=== PATIENT | male | born 1960 | race Caucasian/White ===

== ENCOUNTER 2018-04-05 08:33 | Emergency (ER) | payer MEDICAID ==
[~2018-04-05] VITALS: Ht 190.5 cm; Wt 75.5 kg
[~2018-04-05 08:33] MED LIST: ADV50500 IH; ALBU8HFA PO; AZIT-63 PO; CLIN150C8 PO; CLIN300C85 PO; HYDR-4353 PO; HYDR-4383 PO; IBUP-1984 PO; IPRA3AMP9 NEB; NEBU-161; NICO-631 TD; PANT-47 PO; PRED20TA PO
[2018-04-05 08:34] VITALS: BP 126/74
== END 2018-04-05 08:59 | disposition home or self-care (01) ==
LOC: ER 08:33
DX: S63.502A Unspecified sprain of left wrist, initial encounter (principal); Z88.0 Allergy status to penicillin; Z79.2 Long term (current) use of antibiotics; Z79.899 Other long term (current) drug therapy; W22.8XXA Striking against or struck by other objects, initial encounter; Y93.89 Activity, other specified; Y92.89 Other specified places as the place of occurrence of the external cause; Y99.8 Other external cause status
CPT/HCPCS: 29125; 73130; 99283

== ENCOUNTER 2018-08-28 09:59 | Emergency (ER) | payer MEDICAID ==
[~2018-08-28] VITALS: Ht 190.5 cm; Wt 76.0 kg
[~2018-08-28 09:59] MED LIST changes: +CLIN-96 PO; -CLIN300C85 PO
[2018-08-28] MEDS ORDERED: AZI25OT PO (11:19)
[2018-08-28 11:29] VITALS: BP 117/78
== END 2018-08-28 11:32 | disposition home or self-care (01) ==
LOC: ER 10:00
DX: J18.9 Pneumonia, unspecified organism (principal); J44.9 Chronic obstructive pulmonary disease, unspecified; F17.200 Nicotine dependence, unspecified, uncomplicated; Z79.2 Long term (current) use of antibiotics; Z88.0 Allergy status to penicillin; Z79.899 Other long term (current) drug therapy; Z98.890 Other specified postprocedural states
CPT/HCPCS: 71045; 99283

== ENCOUNTER 2020-07-17 09:09 | Emergency (ER) | payer MEDICAID ==
[~2020-07-17] VITALS: Ht 190.5 cm; Wt 73.0 kg
[~2020-07-17 09:09] MED LIST changes: -CLIN-96 PO; +CLIN-97 PO
[2020-07-17 09:52] LABS: BASOPHILS # (AUTO) 0.1 X10'3 (0-0.2); EOSINOPHILS % (AUTO) 0.6 % (0-6); HEMATOCRIT 38.5 % (42.0-52.0); HEMOGLOBIN 13.3 g/dl (14.0-17.9); LYMPHOCYTES # (AUTO) 0.9 X10'3 (1.1-4.8); LYMPHOCYTES % (AUTO) 13.2 % (21-51); MEAN CORPUSCULAR HEMOGLOBIN 34.9 PG (27.0-31.0); MEAN CORPUSCULAR HGB CONC 34.6 g/dL (33.0-36.5); MEAN CORPUSCULAR VOLUME 100.9 FL (78-98); MEAN PLATELET VOLUME 7.8 FL (7.4-10.4); MONOCYTES # (AUTO) 0.7 X10'3 (0-0.9); NEUTROPHILS # (AUTO) 5.1 X10'3 (1.8-7.7); NEUTROPHILS % (AUTO) 75.2 % (42-75); PLATELET COUNT 231 X10'3 (140-440); RED BLOOD COUNT 3.81 X10'6 (4.70-6.10); WHITE BLOOD COUNT 6.8 X10'3 (4.5-11.0)
[2020-07-17 10:06] LABS: ALANINE AMINOTRANSFERASE 31 U/L (12-78); ALBUMIN 3.1 G/DL (3.4-5.0); ALBUMIN/GLOBULIN RATIO 0.8 (1.1-1.5); ALKALINE PHOSPHATASE 63 IU/L (46-116); ANION GAP 7 (8-16); ASPARTATE AMINO TRANSFERASE 34 U/L (10-37); BILIRUBIN,TOTAL 0.6 MG/DL (0.1-1.0); BLOOD UREA NITROGEN 13 MG/DL (7-18); BUN/CREATININE RATIO 13.3 (5.4-32.0); CALCIUM 8.4 MG/DL (8.5-10.1); CHLORIDE 96 MMOL/L (99-107); CREATININE 0.98 MG/DL (0.60-1.10); GLUCOSE 118 MG/DL (70-104); POTASSIUM 4.7 MMOL/L (3.5-5.1); SODIUM 128 MMOL/L (135-145); TOTAL CARBON DIOXIDE 25.1 MMOL/L (24-32); TOTAL PROTEIN 7.1 G/DL (6.4-8.2); eGFR 78 ML/MIN
[2020-07-17] MEDS ORDERED: DICL100G15 TOP (12:34)
[2020-07-17] MEDS ORDERED: BENZ-16 PO (12:34)
[2020-07-17 12:37] VITALS: BP 132/90
== END 2020-07-17 12:38 | disposition home or self-care (01) ==
LOC: ER 09:10
DX: J44.9 Chronic obstructive pulmonary disease, unspecified (principal); R05 Cough; M94.0 Chondrocostal junction syndrome [Tietze]; Z72.89 Other problems related to lifestyle; Z88.0 Allergy status to penicillin; Z79.2 Long term (current) use of antibiotics; Z79.899 Other long term (current) drug therapy
CPT/HCPCS: 36415; 71045; 80053; 83880; 84484; 85025; 93005; 99285

== ENCOUNTER 2020-07-28 07:41 | Emergency (ER) | payer MEDICAID ==
[~2020-07-28] VITALS: Ht 190.5 cm; Wt 81.8 kg
[~2020-07-28 07:41] MED LIST changes: +BENZ-16 PO; +DICL100G15 TOP
[2020-07-28 07:44] VITALS: BP 119/89
[2020-07-28] MEDS ORDERED: ibuprofen 200mg tablet PO ONE (08:10)
[2020-07-28] MEDS ORDERED: IBUP-1985 PO (08:10)
--- NOTE | 2020-07-28 08:10 | NUR ---
Patient placed in large [id number]
== END 2020-07-28 08:41 | disposition home or self-care (01) ==
LOC: ER 07:42
DX: S42.032A Displaced fracture of lateral end of left clavicle, initial encounter for closed fracture (principal); J44.9 Chronic obstructive pulmonary disease, unspecified; Z72.89 Other problems related to lifestyle; Z88.0 Allergy status to penicillin; Z79.899 Other long term (current) drug therapy; W17.89XA Other fall from one level to another, initial encounter; Y93.89 Activity, other specified; Y92.89 Other specified places as the place of occurrence of the external cause; Y99.8 Other external cause status
CPT/HCPCS: 73030; 99284

== ENCOUNTER 2020-09-03 10:02 | Emergency (ER) | payer MEDICAID ==
[~2020-09-03] VITALS: Ht 190.5 cm; Wt 74.8 kg
[~2020-09-03 10:02] MED LIST changes: -BENZ-16 PO; +IBUP-1985 PO
[2020-09-03 11:23] VITALS: BP 156/94
== END 2020-09-03 11:37 | disposition home or self-care (01) ==
LOC: ER 10:03
DX: G62.9 Polyneuropathy, unspecified (principal); J44.9 Chronic obstructive pulmonary disease, unspecified; Z72.89 Other problems related to lifestyle; Z98.890 Other specified postprocedural states; Z88.0 Allergy status to penicillin; Z79.899 Other long term (current) drug therapy
CPT/HCPCS: 82948; 99282

== ENCOUNTER 2021-02-09 09:23 | Emergency (ER) | payer MEDICAID ==
[~2021-02-09] VITALS: Ht 190.5 cm; Wt 77.3 kg
[2021-02-09 09:36] VITALS: BP 119/76
[2021-02-09] MEDS ORDERED: PERM60CR19 TOP (09:41)
== END 2021-02-09 09:46 | disposition home or self-care (01) ==
LOC: ER 09:23
DX: B86 Scabies (principal); J44.9 Chronic obstructive pulmonary disease, unspecified; Z88.0 Allergy status to penicillin; Z88.1 Allergy status to other antibiotic agents; Z88.8 Allergy status to other drugs, medicaments and biological substances
CPT/HCPCS: 99282

== ENCOUNTER 2021-04-15 09:43 | Emergency (ER) | payer MEDICAID ==
[~2021-04-15] VITALS: Ht 190.5 cm; Wt 75.0 kg
[~2021-04-15 09:43] MED LIST changes: -AZIT-63 PO; +AZIT-83 PO
[2021-04-15 09:57] VITALS: BP 152/92
[2021-04-15] MEDS ORDERED: SULF1TAB45 PO (12:42)
== END 2021-04-15 12:55 | disposition home or self-care (01) ==
LOC: ER 09:44
DX: H00.034 Abscess of left upper eyelid (principal); J44.9 Chronic obstructive pulmonary disease, unspecified; Z87.81 Personal history of (healed) traumatic fracture; Z98.890 Other specified postprocedural states; Z72.89 Other problems related to lifestyle; Z88.0 Allergy status to penicillin; Z79.2 Long term (current) use of antibiotics; Z79.899 Other long term (current) drug therapy
CPT/HCPCS: 10060; 99283

== ENCOUNTER 2021-07-31 12:59 | Emergency (ER) | payer MEDICAID ==
[~2021-07-31] VITALS: Ht 190.5 cm; Wt 77.3 kg
[2021-07-31 13:04] VITALS: BP 100/73
[2021-07-31] MEDS ORDERED: SULF1TAB49 PO (14:33)
== END 2021-07-31 14:48 | disposition home or self-care (01) ==
LOC: ER 13:00
DX: L02.415 Cutaneous abscess of right lower limb (principal); J44.9 Chronic obstructive pulmonary disease, unspecified; Z87.81 Personal history of (healed) traumatic fracture; Z88.0 Allergy status to penicillin; Z79.899 Other long term (current) drug therapy
CPT/HCPCS: 99283

== ENCOUNTER 2023-05-11 13:11 | Emergency (ER) | payer MEDICAID ==
[~2023-05-11] VITALS: Ht 190.5 cm; Wt 77.0 kg
[~2023-05-11 13:11] MED LIST changes: +AZIT-164 PO; -AZIT-83 PO; +CLIN-214 PO; -CLIN150C8 PO
[2023-05-11 13:33] VITALS: BP 145/81; PULSE 88; RESP 16; TEMP 98.2; O2SAT 98
[2023-05-11] MEDS ORDERED: MUPI22OI30 TOP (13:35)
== END 2023-05-11 13:57 | disposition home or self-care (01) ==
LOC: ER 13:11
DX: L01.00 Impetigo, unspecified (principal); J44.9 Chronic obstructive pulmonary disease, unspecified; Z87.81 Personal history of (healed) traumatic fracture; Z72.89 Other problems related to lifestyle; Z79.899 Other long term (current) drug therapy; Z79.2 Long term (current) use of antibiotics; Z88.0 Allergy status to penicillin
CPT/HCPCS: 99283

== ENCOUNTER 2023-05-25 12:13 | Emergency (ER) | payer MEDICAID ==
[~2023-05-25] VITALS: Ht 190.5 cm; Wt 77.6 kg
[2023-05-25 12:50] VITALS: BP 141/79; PULSE 96; RESP 18; TEMP 97; O2SAT 98
== END 2023-05-25 16:06 | disposition left against medical advice (07) ==
LOC: ER 12:14
DX: K13.0 Diseases of lips (principal); Z53.21 Procedure and treatment not carried out due to patient leaving prior to being seen by health care provider
CPT/HCPCS: 99281

== ENCOUNTER 2023-11-07 10:07 | Emergency (ER) | payer MEDICAID ==
[~2023-11-07] VITALS: Ht 190.5 cm; Wt 76.1 kg
[2023-11-07 10:08] VITALS: BP 165/92; PULSE 89; O2SAT 98
[2023-11-07] MEDS ORDERED: TERB30CR8 TOP (11:12)
[2023-11-07 11:18] VITALS: RESP 16; TEMP 98.5
== END 2023-11-07 11:19 | disposition home or self-care (01) ==
LOC: ER 10:08
DX: B36.8 Other specified superficial mycoses (principal); F10.90 Alcohol use, unspecified, uncomplicated; J44.9 Chronic obstructive pulmonary disease, unspecified; Z88.0 Allergy status to penicillin; Z79.899 Other long term (current) drug therapy; Z79.51 Long term (current) use of inhaled steroids; Z79.2 Long term (current) use of antibiotics; Z79.52 Long term (current) use of systemic steroids; Z98.890 Other specified postprocedural states
CPT/HCPCS: 99282

== ENCOUNTER 2024-04-10 07:54 | Emergency (ER) | payer MEDICAID ==
[~2024-04-10] VITALS: Ht 182.9 cm; Wt 76.1 kg
[~2024-04-10 07:54] MED LIST changes: +TERB30CR8 TOP
[2024-04-10] MEDS ORDERED: HYDR-3686 PO (08:22)
[2024-04-10] MEDS ORDERED: PRED20TA PO (08:22)
[2024-04-10 08:33] VITALS: BP 145/82; PULSE 99; RESP 16; TEMP 97.6; O2SAT 100
== END 2024-04-10 08:36 | disposition home or self-care (01) ==
LOC: ER 07:54
DX: L23.89 Allergic contact dermatitis due to other agents (principal); L29.89 Other pruritus; J44.9 Chronic obstructive pulmonary disease, unspecified; F10.90 Alcohol use, unspecified, uncomplicated; Z88.0 Allergy status to penicillin; Z79.52 Long term (current) use of systemic steroids; Z79.899 Other long term (current) drug therapy
CPT/HCPCS: 99283

== ENCOUNTER 2024-06-07 08:29 | Emergency (ER) | payer MEDICAID ==
[~2024-06-07] VITALS: Ht 190.5 cm; Wt 81.1 kg
[~2024-06-07 08:29] MED LIST changes: +HYDR-3686 PO
[2024-06-07 08:45] VITALS: BP 179/91; PULSE 89; RESP 16; TEMP 97.9; O2SAT 99
[2024-06-07] MEDS ORDERED: PERM60CR19 TOP (09:57)
[2024-06-07] MEDS: hydrocortisone 1% cream 28gm TP SCH (10:17)
[2024-06-07] MEDS: triamcinolone acetonide 40mg/ml inj IM ONE (10:17)
== END 2024-06-07 10:22 | disposition home or self-care (01) ==
LOC: ER 08:29
DX: L50.0 Allergic urticaria (principal); J44.9 Chronic obstructive pulmonary disease, unspecified; F10.90 Alcohol use, unspecified, uncomplicated; Z88.0 Allergy status to penicillin; Z98.890 Other specified postprocedural states; Y90.9 Presence of alcohol in blood, level not specified
CPT/HCPCS: 96372; 99283; J3301

== ENCOUNTER 2024-07-27 07:24 | Emergency (ER) | payer MEDICAID ==
[~2024-07-27] VITALS: Ht 188 cm; Wt 78.7 kg
[2024-07-27 07:28] VITALS: TEMP 97.8
[2024-07-27 07:39] VITALS: BP 130/84; PULSE 103; RESP 14; O2SAT 98
[2024-07-27] MEDS ORDERED: BETA15CR4 TOP (07:47)
[2024-07-27] MEDS ORDERED: HYDR-3686 PO (07:48)
== END 2024-07-27 08:02 | disposition home or self-care (01) ==
LOC: ER 07:25
DX: R21 Rash and other nonspecific skin eruption (principal); J44.9 Chronic obstructive pulmonary disease, unspecified; F10.90 Alcohol use, unspecified, uncomplicated; Z88.0 Allergy status to penicillin; Z79.52 Long term (current) use of systemic steroids; Z79.899 Other long term (current) drug therapy; Y90.9 Presence of alcohol in blood, level not specified
CPT/HCPCS: 99283